=== PATIENT | female | born 2005 | race Caucasian/White ===

== ENCOUNTER → 2024-10-01 | Outpatient (CLI) | payer OTHER, SELFPAY ==
--- NOTE | 2024-10-01 11:00 | XR_ITS ---
Examination: Breast ultrasound complete, bilateral Date and time of exam: October 01, 2024 1133 hours INDICATIONS: Bilateral axillary tenderness 3 months, family history, mother, lymphoma Technique: Real-time grayscale ultrasonographic imaging bilateral breasts, including all 4 quadrants as well as nipple retroareolar and axillary regions. Findings: Sonographic images right and left breast demonstrated no cystic or solid masses IMPRESSION: BI-RADS Category 1: Negative studies
== END | disposition home or self-care (01) ==
PROVIDERS: PCP Nurse Practitioner Family; Referring Provider Registered Nurse; Visit Provider Registered Nurse
DX: R22.9 Localized swelling, mass and lump, unspecified (principal)
CPT/HCPCS: 76641

== ENCOUNTER → 2024-11-27 | Outpatient (CLI) | payer OTHER, SELFPAY ==
[2024-11-27 10:09] LABS: Misc Send Out* See Sep Rpt
[2024-11-27 10:34] LABS: Basophils % (Auto) 1 % (0-2.5); Eosinophils # (Auto) 0.2 Thou/mm3 (0.0-0.5); Eosinophils % (Auto) 3 % (0-10); Hematocrit 46.2 % (36.0-46.0); Hemoglobin 15.7 g/dL (12.0-16.0); Immature Granulocytes % (Auto) 0 % (0-0); Immature Granulocytes Auto 0.02 Thou/mm3 (0.00-0.00); Lymphocytes # (Auto) 2.5 Thou/mm3 (1.0-4.8); Lymphocytes % (Auto) 34 % (10-50); Mean Corpuscular Hemoglobin 28.7 pg (25.0-35.0); Mean Corpuscular Volume 85 fL (80-100); Monocytes # (Auto) 0.5 Thou/mm3 (0.0-0.8); Monocytes % (Auto) 7 % (0-12); Neutrophils # (Auto) 4.1 Thou/mm3 (1.8-7.7); Neutrophils % (Auto) 55 % (37-80); Nucleated Red Blood Cell % 0 /100 WBC (0); Platelet Count 339 Thou/mm3 (140-440); RDW Standard Deviation 37.5 fL (36.4-46.3); Red Blood Count 5.47 Miln/mm3 (4.00-5.20); White Blood Count 7.4 Thou/mm3 (3.6-11.0)
[2024-11-27 11:01] LABS: Vitamin B12 698 pg/mL (211-911); Vitamin D 25 Hydroxy Total 31.3 ng/mL (7.3-40.2)
[2024-11-27 11:03] LABS: Alanine Aminotransferase 22 U/L (10-49); Albumin, Serum 5.4 gm/dL (3.5-5.0); Albumin/Globulin Ratio 2.3 (1.2-2.2); Alkaline Phosphatase 70 U/L (46-116); Anion Gap 9 (7-16); Aspartate Amino Transferase 12 U/L (0-34); BUN/Creatinine Ratio 16 Ratio (12-20); Bilirubin,Total 0.6 mg/dL (0.3-1.2); Blood Urea Nitrogen 13 mg/dL (9-23); Calcium 10.2 mg/dL (8.3-10.6); Calcium (Corrected) 10.2 mg/dL (8.5-10.1); Carbon Dioxide 26.9 mMol/L (20.0-31.0); Chloride 102 mMol/L (98-107); Creatinine (Component) 0.8 mg/dL (0.6-1.3); Free T4 (Free Thyroxine) 1.87 ng/dL (0.89-1.76); Globulin 2.4 gm/dL (2.3-3.5); Glucose 92 mg/dL (74-106); Osmolality,Calculated 275 (275-295); Potassium 3.9 mMol/L (3.4-5.1); Sodium 138 mMol/L (136-145); Thyroid Stimulating Hormone 0.84 uIU/mL (0.55-4.78); Total Protein 7.8 gm/dL (5.7-8.2); eGFR > 60 See Note
[2024-11-28 16:03] LABS: RA Screen Negative (Negative)
[2024-12-05 22:03] LABS: Sjogren's antibody (SS-A) <1.0 NEG AI (<1.0 NEGATIVE); Sm Antibody <1.0 NEG AI (<1.0 NEGATIVE)
[2024-12-06 06:37] LABS: ANA Screen, IFA POSITIVE (NEGATIVE)
[2024-12-06 06:38] LABS: Actin Antibody (IgG)* <20 U; Complement Component C3* 225 mg/dL (83-193); Complement Component C4c* 39 mg/dL (15-57); DNA (ds) Antibody* <1 IU/mL; Mitochondrial Ab NEGATIVE (NEGATIVE); Myocardial Ab, IF NEGATIVE (NEGATIVE); Scl-70 Antibody* <1.0 NEG AI (<1.0 NEGATIVE); Sjogren's Antibody (SS-B) <1.0 NEG AI (<1.0 NEGATIVE); Sm/RNP Antibody <1.0 NEG AI (<1.0 NEGATIVE); Striated Muscle Ab NEGATIVE (NEGATIVE); Thyroid Peroxidase Antibodies* 785 IU/mL (<9)
== END | disposition home or self-care (01) ==
PROVIDERS: PCP Family Medicine; Referring Provider Nurse Practitioner Family; Visit Provider Nurse Practitioner Family
DX: R53.83 Other fatigue (principal)
CPT/HCPCS: 36415; 80053; 82306; 82607; 83516; 84439; 84443; 85025; 86015; 86038; 86160; 86225; 86235; 86255; 86376; 86430

== ENCOUNTER → 2024-12-11 | Outpatient (CLI) | payer OTHER, SELFPAY ==
--- NOTE | 2024-12-11 09:30 | XR_ITS ---
Examination: Abdomen sonogram, complete Date and time of exam: December 11, 2024 0933 hours INDICATIONS: Right upper abdominal pain beginning 3 weeks ago. Technique: Multiple real-time grayscale transabdominal sonographic images of the abdomen have been obtained. Findings: Normal gallbladder Normal common bile duct 0.3 cm Pancreatic head prominent 4.1 cm Aorta not enlarged Liver 15.5 cm smooth contour Normal hepatopedal portal venous oh Patent IVC Right kidney 12.4 x 4.8 x 4.6 cm renal cortex 1.8 cm Left kidney 12.8 x 4.9 x 4.9 cm cortex 2.3 cm 10 mm lower pole cyst left kidney Splenomegaly 13.4 cm IMPRESSION: Normal gallbladder No focal liver lesion Mild splenomegaly
== END | disposition home or self-care (01) ==
LOC: CDIM 09:22
PROVIDERS: PCP Family Medicine; Referring Provider Nurse Practitioner Family; Visit Provider Nurse Practitioner Family
DX: R16.1 Splenomegaly, not elsewhere classified (principal)
CPT/HCPCS: 76700

== ENCOUNTER → 2025-01-08 | Outpatient (CLI) | payer OTHER, SELFPAY ==
--- NOTE | 2025-01-08 | XR_ITS ---
EXAMINATION: XR esophogram standard HISTORY: 19-year-old female states symptoms of upper esophageal dysphagia. COMPARISON: None TECHNIQUE: Spot radiographs of the chest, neck, and abdomen were followed by multiple fluoroscopic images of the lower neck, chest, and abdomen during and after the uneventful administration of thin oral barium. FLUOROSCOPY TIME: 1.8 min AIR KERMA: 223 mGy FINDINGS: Clear lungs. No pneumothorax or pleural effusion. Cardiac silhouette normal in size. Nonobstructive bowel gas pattern. No abnormal calcifications project over the abdomen or pelvis. Partially visualized prevertebral soft tissues are not abnormally thickened. Hair artifact present. Nipple, bellybutton, ear metallic ornaments. devices. IUD projects over the pelvic inlet. No pooling in the piriform sinuses or vallecula. No penetration or aspiration while upright. Single episode of flash penetration without jhon aspiration while patient in GRIFFITH position. No mass effect on the oropharynx or hypopharynx. Normal primary and secondary contractions of the esophagus. No internal or external mass effect. No stricture identified. Normal passage of contrast through the gastroesophageal junction Normal position of the ligament of Treitz. No hiatal hernia. No spontaneous or inducible gastroesophageal reflux. IMPRESSION: Single episode of flash penetration without aspiration only in GRIFFITH position, probably due to positioning, though clinical correlation is needed. Otherwise unremarkable esophagram.
== END | disposition home or self-care (01) ==
PROVIDERS: PCP Nurse Practitioner Family; Referring Provider Nurse Practitioner Family; Visit Provider Nurse Practitioner Family
DX: R13.10 Dysphagia, unspecified (principal)
CPT/HCPCS: 74220; Z7610

== ENCOUNTER → 2025-01-22 | Outpatient (CLI) | payer OTHER, SELFPAY ==
[2025-01-22 07:46] LABS: Misc Send Out* See Sep Rpt
[2025-01-22 08:33] LABS: Basophils % (Auto) 1 % (0-2.5); Eosinophils # (Auto) 0.2 Thou/mm3 (0.0-0.5); Eosinophils % (Auto) 2 % (0-10); Hematocrit 44.8 % (36.0-46.0); Hemoglobin 15.5 g/dL (12.0-16.0); Immature Granulocytes % (Auto) 1 % (0-0); Immature Granulocytes Auto 0.04 Thou/mm3 (0.00-0.00); Lymphocytes # (Auto) 2.7 Thou/mm3 (1.0-4.8); Lymphocytes % (Auto) 34 % (10-50); Mean Corpuscular HGB Conc 34.6 g/dl (31.0-37.0); Mean Corpuscular Hemoglobin 29.1 pg (25.0-35.0); Mean Corpuscular Volume 84 fL (80-100); Monocytes # (Auto) 0.6 Thou/mm3 (0.0-0.8); Monocytes % (Auto) 7 % (0-12); Neutrophils # (Auto) 4.5 Thou/mm3 (1.8-7.7); Neutrophils % (Auto) 56 % (37-80); Nucleated Red Blood Cell % 0 /100 WBC (0); Platelet Count 317 Thou/mm3 (140-440); RDW Standard Deviation 38.2 fL (36.4-46.3); Red Blood Count 5.33 Miln/mm3 (4.00-5.20)
[2025-01-22 09:12] LABS: Sed Rate (ESR) 24 mm/hr (0-20)
[2025-01-22 11:18] LABS: Alanine Aminotransferase 24 U/L (10-49); Albumin, Serum 4.5 gm/dL (3.5-5.0); Albumin/Globulin Ratio 1.8 (1.2-2.2); Alkaline Phosphatase 61 U/L (46-116); Anion Gap 11 (7-16); Aspartate Amino Transferase 17 U/L (0-34); BUN/Creatinine Ratio 15 Ratio (12-20); Bilirubin,Total 0.6 mg/dL (0.3-1.2); Blood Urea Nitrogen 12 mg/dL (9-23); C-Reactive Protein 0.8 mg/dL (0.0-0.9); Calcium 10.4 mg/dL (8.3-10.6); Calcium (Corrected) 10.4 mg/dL (8.5-10.1); Carbon Dioxide 24.9 mMol/L (20.0-31.0); Chloride 106 mMol/L (98-107); Creatinine (Component) 0.8 mg/dL (0.6-1.3); Globulin 2.5 gm/dL (2.3-3.5); Glucose 91 mg/dL (74-106); Osmolality,Calculated 282 (275-295); Potassium 4.2 mMol/L (3.4-5.1); Sodium 142 mMol/L (136-145); eGFR > 60 See Note
[2025-01-27 19:48] LABS: Cardiolipin Ab (IgA) <2.0 APL-U/mL; Cardiolipin Ab (IgG) <2.0 GPL-U/mL; Sjogren's antibody (SS-A) <1.0 NEG AI (<1.0 NEGATIVE); Sm Antibody <1.0 NEG AI (<1.0 NEGATIVE)
[2025-01-29 06:41] LABS: Cardiolipin Ab (IgM) <2.0 MPL-U/mL; Complement Component C3* 212 mg/dL (83-193); Complement Component C4c* 35 mg/dL (15-57); DNA (ds) Antibody* <1 IU/mL; Scl-70 Antibody* <1.0 NEG AI (<1.0 NEGATIVE); Sjogren's Antibody (SS-B) <1.0 NEG AI (<1.0 NEGATIVE); Sm/RNP Antibody <1.0 NEG AI (<1.0 NEGATIVE); Thyroid Peroxidase Antibodies* 558 IU/mL (<9)
== END | disposition home or self-care (01) ==
PROVIDERS: PCP Nurse Practitioner Family; Referring Provider Internal Medicine; Visit Provider Internal Medicine
DX: E03.9 Hypothyroidism, unspecified (principal); F32.A Depression, unspecified; F41.9 Anxiety disorder, unspecified; R13.19 Other dysphagia; R76.8 Other specified abnormal immunological findings in serum
CPT/HCPCS: 36415; 80053; 85025; 85652; 86140; 86147; 86160; 86225; 86235; 86376; 86880

== ENCOUNTER 2025-03-05 10:40 | Day surgery (SDC) | payer OTHER, SELFPAY ==
[2025-03-04 10:46] LABS: HCG Qualitative,Urine Negative
[2025-03-05] VITALS (9 sets, daily range): BP systolic 129–156; BP diastolic 83–108; PULSE 95–117; RESP 13–20; TEMP 36.3–36.9; O2SAT 95–100; BMI 41.0
[2025-03-05] MEDS: DiphenhydrAMINE INJ 50 MG/ML VIAL 25 MG IV (12:27)
[2025-03-05] MEDS: SODIUM CHLORIDE 0.9% 500 ML 500 ML 20 ML IV (12:27)
[2025-03-05] MEDS: BENZOCAINE 20% (Hurricaine) SPRAY 1 DOSE TOP (12:27)
[2025-03-05] MEDS: fentaNYL CIT INJ 50 mCg/ML AMP 2ML (ASD USE ONLY) IV (12:36)
[2025-03-05] MEDS: MIDAZOLAM INJ 1 MG/ML VIAL 2 ML (ASD USE ONLY) 2 MG IV (12:36)
--- NOTE | 2025-03-05 13:09 | SUR.PHASEII ---
1245: Pt received in recovery via [facility]. Report from Leanne HAMILTON. Pt groggy, but awake. Resp even, unlabored. VS stable. Denies pain.
--- NOTE | 2025-03-05 13:38 | SUR.PHASEII ---
1310: Pt more awake, alert. VS stable. Denies pain. Sitting up tolerating po fluids with no difficulty swallowing and no n/v. 1325: Pt fully awake, oriented x3. Pt assisted to restroom. Ambulations steady. Pt and father stated understanding of discharge instructions. Pt discharged from [facility] in stable condition.
== END 2025-03-05 13:25 | disposition home or self-care (01) ==
PROVIDERS: PCP Nurse Practitioner Family; Referring Provider Specialist; Visit Provider Specialist
PROC: (CPT 43239; principal; 2025-03-05 12:00)
DX: K20.90 Esophagitis, unspecified without bleeding (principal); K22.2 Esophageal obstruction; K29.70 Gastritis, unspecified, without bleeding
CPT/HCPCS: 43248; 43239; 81025; A4649; C1769; J1200; J2250; J3010; J7040; A9270

== ENCOUNTER → 2025-06-06 | Outpatient (CLI) | payer OTHER, SELFPAY ==
[2025-06-06 10:02] LABS: Basophils # (Auto) 0.1 Thou/mm3 (0.0-0.2); Basophils % (Auto) 1 % (0-2.5); Eosinophils # (Auto) 0.3 Thou/mm3 (0.0-0.5); Eosinophils % (Auto) 3 % (0-10); Hematocrit 43.2 % (36.0-46.0); Hemoglobin 14.9 g/dL (12.0-16.0); Immature Granulocytes Auto 0.05 Thou/mm3 (0.00-0.00); Lymphocytes # (Auto) 3.4 Thou/mm3 (1.0-4.8); Lymphocytes % (Auto) 39 % (10-50); Mean Corpuscular HGB Conc 34.5 g/dl (31.0-37.0); Mean Corpuscular Hemoglobin 29.1 pg (25.0-35.0); Mean Corpuscular Volume 84 fL (80-100); Monocytes # (Auto) 0.6 Thou/mm3 (0.0-0.8); Monocytes % (Auto) 7 % (0-12); Neutrophils # (Auto) 4.3 Thou/mm3 (1.8-7.7); Neutrophils % (Auto) 50 % (37-80); Nucleated Red Blood Cell # 0.00 Thou/mm3 (0.00-0.00); Nucleated Red Blood Cell % 0 /100 WBC (0); Platelet Count 327 Thou/mm3 (140-440); RDW Standard Deviation 41.1 fL (36.4-46.3); Red Blood Count 5.12 Miln/mm3 (4.00-5.20); White Blood Count 8.6 Thou/mm3 (3.6-11.0)
[2025-06-06 10:09] LABS: Glucose Estimated Average 108 mg/dL (80-131); Hemoglobin A1C 5.4 % Hgb (4.8-6.0)
[2025-06-06 10:27] LABS: Alanine Aminotransferase 20 U/L (10-49); Albumin, Serum 4.6 gm/dL (3.5-5.0); Albumin/Globulin Ratio 2.2 (1.2-2.2); Alkaline Phosphatase 67 U/L (46-116); Anion Gap 12 (7-16); Aspartate Amino Transferase 16 U/L (0-34); BUN/Creatinine Ratio 9 Ratio (12-20); Bilirubin,Total 0.4 mg/dL (0.3-1.2); Blood Urea Nitrogen 8 mg/dL (9-23); Calcium 9.4 mg/dL (8.3-10.6); Calcium (Corrected) 9.4 mg/dL (8.5-10.1); Carbon Dioxide 25.2 mMol/L (20.0-31.0); Cardiac Risk Estimate 4.3 RATIO (3.7-5.6); Chloride 105 mMol/L (98-107); Cholesterol 190 mg/dL (132-200); Creatinine (Component) 0.9 mg/dL (0.6-1.3); Globulin 2.1 gm/dL (2.3-3.5); Glucose 91 mg/dL (74-106); HDL Cholesterol 44 mg/dL (40-60); LDL Cholesterol,Calculated 113 mg/dL (0-130); Osmolality,Calculated 281 (275-295); Potassium 4.0 mMol/L (3.4-5.1); Sodium 142 mMol/L (136-145); Thyroid Stimulating Hormone 17.60 uIU/mL (0.55-4.78); Total Protein 6.7 gm/dL (5.7-8.2); Triglycerides 163 mg/dL (30-150); eGFR > 60 See Note
== END | disposition home or self-care (01) ==
LOC: COPL 08:51
PROVIDERS: PCP Family Medicine; Referring Provider Nurse Practitioner Family; Visit Provider Nurse Practitioner Family
DX: Z00.00 Encounter for general adult medical examination without abnormal findings (principal); E28.2 Polycystic ovarian syndrome
CPT/HCPCS: 36415; 80053; 80061; 83036; 84443; 85025

== ENCOUNTER → 2025-06-18 | Outpatient (CLI) | payer OTHER, SELFPAY ==
--- NOTE | 2025-06-18 15:15 | XR_ITS ---
Examination: Abdomen sonogram, complete Date and time of exam: June 18, 2025 1526 hours INDICATIONS: Left lower abdominal pain beginning 3 days ago. Technique: Multiple real-time grayscale transabdominal sonographic images of the abdomen have been obtained. Findings: Normal gallbladder Normal common bile duct 0.5 cm Pancreatic head 2.5 cm Aorta not enlarged Liver 16.9 cm fatty infiltration Normal hepatopedal portal venous flow Patent IVC Right kidney 10.2 cm cortex 1.6 cm Left kidney 10.1 cm cortex 2.2 cm Mild renal scar formation Spleen 12.3 cm IMPRESSION: Normal gallbladder Normal common bile duct Mild hepatomegaly
--- NOTE | 2025-06-18 15:15 | XR_ITS ---
Examination: Pelvic ultrasound, transabdominal, complete Technique: Transabdominal ultrasound of the pelvis performed using grayscale imaging Date and time of exam: June 18, 2025 1520 hours INDICATIONS: Onset left lower abdominal pain beginning 3 days ago FINDINGS: Uterus 6.2 cm intrauterine device satisfactory position, endometrial stripe 0.8 cm no uterine mass Right ovary 4.8 cm arterial flow 11 mm follicular cyst Left ovary 4.2 cm arterial flow 20 mm follicular cyst IMPRESSION: Intrauterine device satisfactory position No uterine mass
[2025-06-18 15:36] LABS: Collection Type, Urine Clean Catch
[2025-06-18 16:42] LABS: Bacteria,Urine Rare; Bilirubin,Urine Negative (Negative); Blood,Urine Negative (Negative); Clarity,Urine Clear (Clear/Hazy); Color,Urine Yellow (Lt Yel-Yel); Culture Indicated,Urine Not Indicated; Glucose, Urine Negative (Negative); Ketones,Urine 1+ (Negative); Leukocyte Esterase,Urine Negative (Negative); Nitrite,Urine Negative (Negative); PH,Urine 6.0 (5.0-7.0); Protein,Urine Negative (Neg - Trace); RBC,Urine 2 /hpf (0-3); Specific Gravity,Urine 1.033 (1.001-1.035); Squamous Epithelial Cell,Urine 4 /hpf (0-5); Urobilinogen,Urine Negative mg/dL (0.0-1.0); WBC,Urine 2 /hpf (0-5)
[2025-06-18 16:54] LABS: HCG Qualitative,Urine Negative
== END | disposition home or self-care (01) ==
LOC: CDIM 15:24 → COPL 15:35
PROVIDERS: PCP Nurse Practitioner Family; Referring Provider Nurse Practitioner Family; Visit Provider Radiology Diagnostic Radiology
DX: K76.0 Fatty (change of) liver, not elsewhere classified (principal); Z97.5 Presence of (intrauterine) contraceptive device; R10.32 Left lower quadrant pain
CPT/HCPCS: 76700; 76856; 81001; 81025

== ENCOUNTER 2025-08-15 08:51 | Outpatient (AMB) | payer OTHER, SELFPAY ==
--- NOTE | 2025-08-15 09:03 | AMB.GYNCLNOT ---
Vital Signs 08/15/25 09:04 Height 1.63 m Height Method Stated Weight 110.903 kg Weight Measurement Method Standing Scale BMI 41.9 BP 131/88 H Blood Pressure Source Automatic Cuff Blood Pressure Location Left Upper Arm Position Sitting Respiration 16 Pulse 104 H Pulse Source Monitor Temp 97.2 F Temp Source Oral Pulse Oximetry (%) 97 Oxygen Delivery Method Room Air Allergies/Home Meds Allergies & Medications Allergies No Known Allergies Allergy (Verified 08/15/25 09:06) Medication Reconciliation acetaminophen 650 mg tablet,extended release 650 mg PO Q8H PRN fever or pain #30 tabs 12/30/19 [Rx Confirmed 08/15/25] dextromethorphan-guaifenesin 5 mg-100 mg/5 mL oral liquid (Robitussin Cough-Chest Congestion DM) 10 ml PO Q8H PRN cough #120 mL 12/30/19 [Rx Confirmed 08/15/25] levothyroxine 150 mcg capsule 150 mcg PO QDAY 12/30/19 [History Confirmed 08/15/25] Intake Visit Data Collection New Patient or Established: Established Patient (seen at [facility] within 3 years) Reason for Visit:: IUSD REMOVAL CONSUULT Seen by Clinical Staff ONLY (RN/MA): No Cook Helper Vegetable Required: No Do You Feel Safe at Home: Yes Authorities Contacted: N/A PCP or OBGYN visit in last 3 months: Yes Date of Last PCP or OBGYN visit: 03/05/25 Hx Now: Yes Are you currently on any form of Control: Yes Pain Present Currently: No Pain Scale Used: [place]/Numerical Pain scale:: 0 Smoking Status Smoking Status: Never smoker 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 1. Little interest or pleasure in doing things: not at all 2. Feeling down, depressed, or hopeless: not at all Total score: 0 PHQ-9 3. Trouble falling or staying asleep, or sleeping too much: Not at all 4. Feeling tired or having little energy: Not at all 5. Poor appetite or overeating: Not at all 6. Feeling bad about yourself - or that you are a failure or have let yourself or your family down: Not at all 7. Trouble concentrating on things, such as reading the newspaper or watching television: Not at all 8. Moving or speaking so slowly that other people could have noticed? - Or the opposite - being so fidgety or restless that you have been moving around a lot more than usual: not at all 9. Thoughts that you would be better off or of hurting yourself in some way: Not at all Total score: 0 If you checked off any problems, how difficult have these problems made it for you to do your work, take care of things at home, or get along with other people?: not difficult at all Source: Developed by Drs. Wayne Markham, Beatriz Berger, Carlos Ho and colleagues, with an educational danae from [employer]. Depression screen completed yes Social History Living Situation History Marital Status: Single Lives With: Family Housing: House Tobacco History Smoking Status: Never smoker Second Hand Smoke Exposure: No Alcohol History Alcohol Intake: Never Domestic Abuse History Do You Feel Safe at Home: Yes History of Present Illness HPI Narrative Abnormal uterine bleeding, consultation for IUD removal recommended by early intervention school psychologist due to bilateral follicular cysts and left lower quadrant pain for over a week Jamin is a 20-year-old female with a history of PCOS presenting for consultation regarding abnormal uterine bleeding and elevated blood pressures. She has an IUD in situ and presented to her primary care provider requesting IUD removal, which was recommended by her early intervention school psychologist, Dr. Abarca, due to bilateral follicular cysts and left lower quadrant pain that has been present for over a week. The patient has elevated blood pressures with a reading of 144/83 in February and 136/87 today. She has a thyroid problem and was advised by her new thyroid doctor to remove the Mirena IUD, as the doctor believes it affects her PCOS and thyroid condition. She was diagnosed with PCOS at a young age but has not had recent hormone tests. Currently, Jamin has no menstrual cycle. She and her boyfriend plan to have children eventually. Medical History: - Polycystic ovary syndrome (PCOS) diagnosed at a young age - Thyroid problem - Elevated blood pressures with readings of 144/83 in February and 136/87 at current visit Social History: - Has a boyfriend with whom she plans to have children eventually Exam General General Appearance: alert, in no apparent distress and healthy appearing Head Head exam: atraumatic Neck Neck exam: Present normal inspection and trachea midline Chest Chest inspection: Present normal inspection and symmetric chest wall rise External exam: Present normal external exam; Absent tenderness Neuro Neurological exam: Present oriented X3 Psych Psychiatric exam: Present normal affect and normal mood Office Procedures O[facility] Clinic LOC & Office Proc's Nursing/Assessment Patient Status: Established Patient OB Clinic Nursing Assessment: Medication Reconciliation, Update PMH in EMR and Vital Signs OB Clinic Coordination of Care: Consent,records obtained, informed consent, Education Simp Pt/Fam, Lab and Imaging orders, Results/Orders obtained and Staff clarify orders Special Needs: Heart tones Established Patient Charge Established Patient Point Assignment: 110 Established Patient Point Charge: EP Level 3 (80-115) Assessment & Plan Diagnosis / Problem List (1) PCOS (polycystic ovarian syndrome): Status: Acute (2) Anovulatory amenorrhea: Status: Acute Plan Diagnostic Test Results and Labs: - Pelvic ultrasound (06-18-2025): Uterus 6.2 cm, intrauterine device in satisfactory position, endometrial stripe 0.8 mm, no uterine mass, right ovary 4.8 cm with 11 mm follicular cyst, left ovary 4.2 cm with 20 mm follicular cyst - HCG (06-18-2025): Negative Abnormal uterine bleeding with IUD Assessment: Patient presents with abnormal uterine bleeding in the setting of Mirena IUD in situ. Pelvic ultrasound from 06/18/2025 demonstrates IUD in satisfactory position with normal-sized uterus (6.2 cm) and thin endometrial stripe (0.8 mm), indicating the IUD is effective. Patient currently has no menstrual cycle, which is actually a preferred outcome for women with PCOS to avoid irregular periods. Her thyroid doctor has recommended IUD removal believing it affects her PCOS and thyroid, however from a gynecologic standpoint, the IUD is considered beneficial for PCOS, irregular bleeding, and weight management as it does not contain estrogen and has fewer systemic side effects compared to oral contraceptive pills. Plan: - Keep the IUD in place - Communicate with Dr. Abarca regarding management plan PCOS Assessment: Patient has history of PCOS diagnosed at a young age but has not had recent hormone testing. Current ultrasound shows bilateral ovarian follicular cysts (right ovary 4.8 cm with 11 mm cyst, left ovary 4.2 cm with 20 mm cyst) which are normal ovulatory follicles with good blood supply. She does not meet the criteria for multiple cysts typical of PCOS. Patient and boyfriend plan to have children eventually. Plan: - Run PCOS hormone tests - Insurance allows lab work to be done here with results to be sent to Dr. Abarca - Upon deciding to conceive, IUD can be removed and medications can assist in conception - Maintain general health, weight, and avoid high glycemic foods for fertility - Partner should maintain healthy lifestyle and have baseline sperm test Elevated blood pressure Assessment: Patient has elevated blood pressures with reading of 144/83 in February and 136/87 today. Left lower quadrant pain Assessment: Patient has left lower quadrant pain for over a week, which prompted early intervention school psychologist Dr. Abarca to recommend IUD removal. This is likely related to the 20 mm follicular cyst on the left ovary identified on ultrasound. Polycystic ovary syndrome (PCOS) is diagnosed in adults when at least two of the following are present: clinical or biochemical hyperandrogenism, ovulatory dysfunction (irregular cycles), or polycystic ovarian morphology on ultrasound or elevated anti-M?llerian hormone, with exclusion of other etiologies. For menstrual irregularity and hyperandrogenic symptoms, combined oral contraceptive pills (COCPs) are the preferred first-line pharmacologic therapy, as they effectively regulate cycles, reduce androgen excess, and provide endometrial protection. There is no clinical advantage to high-dose versus low-dose ethinyl estradiol, and no specific COCP preparation is recommended; choice should be individualized based on risk profile and patient preference. LNG-IUDs may be considered for endometrial protection and contraception in those with contraindications to COCPs, but do not address hyperandrogenic symptoms. Shared decision-making and individualized risk assessment are essential in selecting therapy.
[2025-08-15 09:04] VITALS: BP 131/88; PULSE 104; RESP 16; TEMP 36.2; O2SAT 97; BMI 41.9
== END 2025-08-15 09:20 | disposition home or self-care (01) ==
LOC: HODSOBC 08:51
PROVIDERS: PCP Nurse Practitioner Family; Referring Provider Nurse Practitioner Family; Supervising Provider Obstetrics & Gynecology; Visit Provider Obstetrics & Gynecology
DX: E28.2 Polycystic ovarian syndrome (principal); N97.0 Female infertility associated with anovulation; R10.32 Left lower quadrant pain; R03.0 Elevated blood-pressure reading, without diagnosis of hypertension; E03.9 Hypothyroidism, unspecified; Z97.5 Presence of (intrauterine) contraceptive device; Z79.890 Hormone replacement therapy
CPT/HCPCS: 99213; G0463

== ENCOUNTER → 2025-08-15 | Outpatient (CLI) | payer OTHER, SELFPAY ==
[2025-08-15 11:16] LABS: Follicle Stimulating Hormone 7.16 mIU/mL (See Note)
[2025-09-01 07:02] LABS: DHEA Sulfate* 426 mcg/dL (18-391); Prolactin* 12.8 ng/mL; Testosterone, Free 14.2 pg/mL (0.2-5.0)
[2025-09-01 07:04] LABS: 17-Hydroxyprogesterone* 56 ng/dL; Albumin 4.2 g/dL (3.6-5.1); Sex Hormone Binding Globulin* 8 nmol/L (17-124); Testosterone, Bioavailable 27.3 ng/dL (0.5-8.5); Testosterone,Total 49 ng/dL (2-45)
[2025-09-03 08:21] LABS: SHBG DUPLICATE ORDER
== END | disposition home or self-care (01) ==
LOC: COPL 09:32
PROVIDERS: PCP Family Medicine; Referring Provider Obstetrics & Gynecology; Visit Provider Obstetrics & Gynecology
DX: E28.2 Polycystic ovarian syndrome (principal)
CPT/HCPCS: 36415; 82040; 82627; 83001; 83498; 84146; 84270; 84403

== ENCOUNTER 2025-09-26 21:40 | Emergency (ER) | payer OTHER, SELFPAY ==
[2025-09-26 21:41] VITALS: BMI 41.1
[2025-09-26 21:56] VITALS: BP 135/87; PULSE 101; RESP 18; TEMP 36.9; O2SAT 95
--- NOTE | 2025-09-26 22:00 | XR_ITS ---
Examination: Hand, right 3 views Technique: Hand AP, oblique, lateral 3 views Date and time of exam: September 26, 2025, 10 0 5:00 p.m. INDICATIONS: Dog bite 2 hours ago, hand pain FINDINGS: No acute fracture No foreign body No cortical bone destruction IMPRESSION: No foreign body
--- NOTE | 2025-09-26 22:01 | PD.EDANIML ---
ED Animal Bite RME/HPI General Chief Complaint: Animal Bite Stated Complaint: DOG BITE Time Seen by Provider: 09/26/25 21:48 Arrival date/time: 09/26/25 21:40 20-year-old female patient came in for evaluation regarding dog bite to the left pinky finger incident happened about 4 hours prior to ER visit, patient was bitten by a dog in the neighborhood, while trying to scare the dog to get away from her car resulting into a punctured wound to the left fifth finger palmar aspect resulting to pain and puncture wound. No deformity noted. Able to bend and extend the finger with some limitation. Tetanus vaccination is 1-year-old. Patient told me that if she will see the dog again she will recognize it. Related Data Home Medications ?Medication ?Instructions ?Recorded ?Confirmed levothyroxine 150 mcg capsule 150 mcg PO QDAY 12/30/19 09/05/25 Previous Rx's ?Medication ?Instructions ?Recorded spironolactone 50 mg tablet 50 mg PO QDAY 90 days #90 tabs 09/05/25 amoxicillin 875 mg-potassium 1 tab PO BID #14 tabs 09/26/25 clavulanate 125 mg tablet ibuprofen 800 mg tablet 800 mg PO Q8H PRN pain #30 tabs 09/26/25 Allergies Allergy/AdvReac Type Severity Reaction Status Date / Time No Known Allergies Allergy Verified 09/26/25 21:41 Review of Systems Review of Systems Narrative Review of Systems: Review of system reviewed and within normal limits except mentioned in HPI ED Exam Narrative Physical exam: VITAL SIGNS: Reviewed. GENERAL APPEARANCE: Alert and interactive, follows commands, no acute distress, HEAD AND FACE: Non-traumatic. ENT: PERRL, pink conjunctivitis, eyelid no trauma, Mucous membrane moist. NECK: Supple, nontender, no nuchal rigidity. CHEST: No tenderness, no crepitus, no paradoxical movement, no retractions. LUNGS: Clear, well ventilated, symmetric, no rales, no wheezing, no ronchi, no stridor, good breath sounds bilaterally. HEART: Regular rate, regular rhythm, no murmur, no gallops. ABDOMEN: Soft, positive bowel sounds, nondistended, no guarding, nontender, no rebound, no masses, RECTAL: Deferred. GENITAL: Deferred. NEUROLOGICAL: Gross motor function intact sensory function intact, Appropriate for age. MUSCULOSKELETAL: low back nontender, full range of motion. EXTREMITIES: Puncture wound to the left pinky finger palmar aspect proximal phalanx, full range of motion. No deformity noted wound is not gaping SKIN: Color pink, dry, no rash, no lacerations, no abrasions, no contusions. LYMPHATICS: Deferred. Course Quality Measures none Orders Category Date Time Status XR hand RT 2V Stat Exams 09/26/25 22:00 Taken Amoxicillin/Pot Clav 875 [Augmentin 875] Med 09/26/25 22:00 Discontinued 1 tab PO X1 ONE HYDROcodone*/APAP 5/325 [[place] 5/325] Med 09/26/25 22:00 Discontinued 1 tab PO X1 ONE Vital Signs Vital signs: Vital Signs Temperature 98.5 F 09/26/25 21:56 Pulse Rate 101 H 09/26/25 21:56 Respiratory Rate 18 09/26/25 21:56 Blood Pressure 135/87 H 09/26/25 21:56 Pulse Oximetry (%) 95 09/26/25 21:56 Oxygen Delivery Method Room Air 09/26/25 21:56 Animal Bite MDM Narrative MDM Narrative:: 09/26/25 21:40 20-year-old female patient came in for evaluation regarding dog bite to the left pinky finger incident happened about 4 hours prior to ER visit, patient was bitten by a dog in the neighborhood, while trying to scare the dog to get away from her car resulting into a punctured wound to the left fifth finger palmar aspect resulting to pain and puncture wound. No deformity noted. Able to bend and extend the finger with some limitation. Tetanus vaccination is 1-year-old. Patient told me that if she will see the dog again she will recognize it. Wound cleansed with NS, Neosporin dressing applied. Patient was given [place] and Augmentin x-ray of the finger was done to rule out fracture, came back with no fracture dislocation. Results discussed with the patient. Patient was advised to report this incident to the low enforcement to quarantine the dog. If they are not able to quarantine the dog patient is to come back for rabies shots. Patient agrees with the plan. Patient data External records reviewed:: None Clinical information provided by:: none Social determinants that could affect healthcare access:: none Patient has the following chronic illnesses:: None How is presenting disease/condition affected by chronic disease/condition?: no chronic disease Evaluation data The following diagnostics were reviewed and interpreted by me:: radiology exam(s) Lab and/or radiology exams considered but not ordered:: None Interpretation Summary: See above Medications / Prescriptions Medications or Prescriptions considered but not ordered:: None Medication administrations:: Medication Administration History Discontinued Medications Hydrocodone Bitart/Acetaminophen (Hydrocodone/Apap 5/325 Tablet) 1 tab PO X1 ONE Stop: 09/26/25 22:01 Last Admin: 09/26/25 22:15 Dose: 1 tab Documented By: INDERJIT Amoxicillin/Clavulanate Potassium (Amoxicillin/Pot Clav 875 Tablet) 1 tab PO X1 ONE Stop: 09/26/25 22:01 Last Admin: 09/26/25 22:15 Dose: 1 tab Documented By: INDERJIT [place] Augmentin Consultations Consultation(s) initiated? (list below): No Diagnosis Differential diagnosis animal bite: bite by animal and dog bite Most likely diagnosis given after review of the tests above:: Puncture wound secondary to dog bite finger Admission Indicated Admission indicated?: not indicated Admission Request Was there a request for admission?: No Disposition Plan Disposition Plan: Discharge Discharge Attestation Discharge Attestation: The patient and all family members were given an opportunity to ask questions and understood the discharge instructions. Discharge instructions specifically effects, indications for sooner follow up or return to the emergency department, and the expected course of current diagnosis. Patient condition: Stable Discharge Plan Plan Patient Disposition: HOME (Self Care) Discharge Disposition comment: stable Prescriptions/Referrals Prescriptions/Med Rec: New amoxicillin-pot clavulanate 875-125 mg tablet 1 tab PO BID Qty: 14 0RF ibuprofen 800 mg tablet 800 mg PO Q8H PRN (Reason: pain) Qty: 30 0RF No Action spironolactone 50 mg tablet 50 mg PO QDAY 90 Days Qty: 90 3RF levothyroxine 150 mcg capsule 150 mcg PO QDAY Problem List Clinical Impression: Dog bite, Puncture wound of finger Patient/Caregiver Discharge Instructions Discharge Activity: activity as tolerated Education Materials: ED Dog Bite Additional Instructions: Thank you for the opportunity for serving you today. You are stable for discharged . You are advised to: Follow-up with your PCP in 1 to 2 days Return to ED for worsening of symptoms Increase oral fluids Take medication as prescribed Daily dressing with soap and water apply triple antibiotic daily as needed Please report this to your local law enforcement to quarantine the dog and observe for 10 days. Print Language: Polish Stand Alone Forms: Eunice Award Info., Patient Portal Info Letter PA/MOLD SHEET CLEANER Supervising Physician PA/MOLD SHEET CLEANER Supervising Physician: MD Ceci
[2025-09-26] MEDS: AMOXICILLIN/POT CLAV 875 TABLET 1 TAB PO (22:15)
[2025-09-26] MEDS: HYDROcodone/APAP 5/325 TABLET 1 TAB PO (22:15)
[2025-09-26 23:14] VITALS: RESP 16
== END 2025-09-26 23:15 | disposition home or self-care (01) ==
LOC: SERX 23:25
PROVIDERS: Emergency Provider Emergency Medicine; PCP Nurse Practitioner Family
DX: S61.237A Puncture wound without foreign body of left little finger without damage to nail, initial encounter (principal); W54.0XXA Bitten by dog, initial encounter
CPT/HCPCS: 73120; 73130; 99282; A9270